=== PATIENT | male | born 1950 | race Caucasian/White ===

== ENCOUNTER 2016-12-20 20:13 | Observation (INO) | payer OTHER ==
--- NOTE | ~2016-12-20 | CO ---
Unit #: [id number] #: [id number] Patient: DEVON MONTGOMERY [id number] [address] [place], [place] [address] [id number] MR#: [id number] NAME: DEVON MONTGOMERY. ROOM: 339 Age: 66 Sex: M Admission Date: 12/21/2016 : 1950 Attending Physician: Anthony Carvalho M.D. Primary Care Physician: Bhanu Orozco D.O. Consultation Date: 12/21/2016 CONSULTATION REPORT BRIEF HISTORY The patient is a 66-year-old gentleman with a bulge in his umbilicus for a couple years, increasing pain over the last 24 hours, so presented to the emergency room and was found to have a partially incarcerated hernia. This was reduced. He has had no nausea or vomiting. No fevers or chills. Normal bowel function. PAST MEDICAL HISTORY Cardiac dysfunction, hypertension. PAST SURGICAL HISTORY He had appendectomy, a Lap-Band surgery, tonsillectomy, multiple extremity operations. HOME MEDICATIONS Unknown. The patient is to bring a list. SOCIAL HISTORY No smoking. Does drink alcohol on a routine basis. FAMILY HISTORY Noncontributory. Negative for GI malignancy. REVIEW OF SYSTEMS No cardiopulmonary complaints at this time. Else, 10 systems reviewed and negative. PHYSICAL EXAMINATION GENERAL: He is awake, alert, appropriate, currently afebrile. VITAL SIGNS: Temperature 97.7. HEENT: Unremarkable. NECK: Supple. No JVD. Trachea midline. LUNGS: Clear to auscultation. Bilateral breath sounds symmetric. CARDIOVASCULAR: Regular rate and rhythm. ABDOMEN: Soft. It is mildly tender in the periumbilical region. There was a 2 cm defect. This appears to be reducible. EXTREMITIES: No clubbing, cyanosis, or edema. DIAGNOSTIC STUDIES LABORATORY RESULTS: Show white count of 17, hemoglobin of 15. Chemistries are normal. ASSESSMENT Partially incarcerated symptomatic umbilical hernia. Unit #: [id number] #: [id number] Patient: DEVON MONTGOMERY PLAN Recommend IV fluid hydration. We will plan for laparoscopic ventral hernia repair. Discussed in detail. Questions answered. Dictated by... Soy Hoang M.D. FAVIO/mckayla TD: 12/21/2016 08:03 JOB #: [id number] CONSULTATION REPORT Page 1 of 1 X Soy Hoang MD CONSULTATION REPORT
--- NOTE | ~2016-12-20 | OR ---
Unit #: [id number] #: [id number] Patient: DEVON MONTGOMERY [id number] [address] [place], [place] [address] [id number] Nino MR#: [id number] NAME: DEVON MONTGOMERY. ROOM: [facility] Date of Procedure: 12/21/2016 Admission Date: 12/21/2016 Surgeon: Soy Hoang M.D. : 1950 Attending Physician: Anthony Carvalho M.D. Primary Care Physician: Bhanu Orozco D.O. OPERATIVE REPORT PREOPERATIVE DIAGNOSIS Incarcerated ventral hernia. POSTOPERATIVE DIAGNOSIS 3 cm incarcerated ventral hernia. PROCEDURE PERFORMED Laparoscopic ventral hernia repair of incarcerated ventral hernia with 8 x 6 Ventralight mesh. ASSISTANT Dakota Chang M.D. ANESTHESIA General. ESTIMATED BLOOD LOSS Minimal. IV FLUIDS 800 crystalloid. COMPLICATIONS None. INDICATIONS FOR PROCEDURE The patient is a 66-year-old gentleman, who presented to the emergency room with partial obstruction and incarcerated hernia. He presents for laparoscopic repair. DESCRIPTION OF PROCEDURE The patient was taken to the operating theater and placed in supine position. General anesthesia was induced. The abdomen was prepped and draped. A 5-mm Optiview trocar was placed in the left upper quadrant. The abdomen was insufflated to 15 mmHg with CO2. Under direct vision, I placed a left lower quadrant 10 mm. The patient was found to have incarcerated ventral hernia, measured approximately 3 cm in diameter. This was reduced with gentle traction. The lap band and lap band tubing appeared to be normal. I placed an 8 x 6 Ventralight mesh into position. This was held in place with single-stranded Vicryl sutures and delivered transcutaneous. I then secured with SorbaFix Tacker with each tack being 1.5 cm from the previous tack. Hemostasis was adequate. I removed the Unit #: [id number] #: [id number] Patient: DEVON MONTGOMERY ports under direct vision with no evidence of abdominal hemorrhage. The wounds were closed with 4-0 Vicryl. The patient tolerated the procedure well and sent to recovery room in good condition. Dictated by... Paulette Rogers/mckayla TD: 12/22/2016 07:48 JOB #: [id number] OPERATIVE REPORT Page 1 of 1 X Soy Hoang MD PROCEDURE OPERATIVE NOTE
--- NOTE | ~2016-12-20 | EKG ---
PATIENT: DEVON MONTGOMERY UNIT #: [id number] Ventricular Rate: 56 BPM Atrial Rate: 56 BPM P-R Interval: 126 ms QRS Duration: 100 ms Q-T Interval: 414 ms QTC Calculation(Bezet): 399 ms P Stuart: 15 degrees Calculated R Stuart: -2 degrees Calculated T Stuart: 17 degrees Diagnosis Line: Sinus bradycardia Diagnosis Line: Otherwise normal ECG Diagnosis Line: When compared with ECG of 28-FEB-2015 09:31, Diagnosis Line: No significant change was found Diagnosis Line: Confirmed by CARLIE NGO MD ([id number]) on 12/21/2016 Diagnosis Line: 5:02:52 PM INTERPRETING MD: JENI BULLOCK
--- NOTE | ~2016-12-20 | CT2 ---
[facility] A Service of [facility] & [facility] RADIOLOGY TEXT RESULTS PATIENT: DEVON MONTGOMERY LOCATION: [facility] 339-01 : [birth year] UNIT #: [id number] AGE: [address]: Anthony Carvalho SEX: M ORDER DR: [id number] [facility] [address]. [place], [place] [address] [id number] MR#: [id number] Acc #: [id number] NAME: DEVON MONTGOMERY. : 1950 SEX: M STUDY DATE/TIME: 12/20/2016 22:09 [facility] ROOM: [facility] STUDY DESCRIPTION: CT Abd and Pelv W Cont Attending Physician: Anthony Carvalho M.D. Ordering Physician: Jennifer Hernandez M.D. Primary Care Physician: Bhanu Orozco D.O. MEDICAL IMAGING REPORT This report is preliminary unless electronic signature is present EXAM CT abdomen and pelvis with IV contrast. HISTORY Low abdomen pain and nausea today. Hernia reduction in the emergency room today. FINDINGS CT abdomen and pelvis was performed with IV contrast. This CT exam was performed with one or more of the following radiation dose reduction techniques: automatic exposure control, adjustment of mA and/or kV according to patient size, and iterative reconstruction. CT ABDOMEN Laparoscopic gastric band is in satisfactory position. Mild dilatation of small bowel loops in the left abdomen measuring up to 4 cm in diameter. The remainder of the small bowel and colonic caliber are normal. There is a short segment of mildly thickened small bowel in the lower abdomen just to the right of midline, near the umbilicus, with adjacent mild mesenteric stranding. This could be secondary to edema or inflammation. There is a small umbilical hernia containing fluid measuring 2.67 x 2.6 cm in AP and transverse dimensions and 4.1 cm in length. The liver, spleen, pancreas, left kidney, and adrenal glands are normal. Stones in the mid right kidney measure up to 1 cm. Small infrarenal abdominal aortic aneurysm measures 3.[address] PELVIS No pelvic free fluid. No bowel dilatation. Urinary bladder is normal. Prostate gland is unremarkable. Right hip prosthesis. IMPRESSION [facility] A Service of [facility] & [facility] RADIOLOGY TEXT RESULTS PATIENT: DEVON MONTGOMERY LOCATION: A 339-01 : [birth year] UNIT #: [id number] AGE: [address]: Anthony Carvalho SEX: M ORDER DR: 1. Mild dilatation of small bowel in the left upper quadrant measuring up to nearly 4 cm in diameter. This could be secondary mild localized ileus. No focal transition point is identified. 2. Small amount of fluid within an umbilical hernia measuring just over 4 cm in maximal dimension. 3. There is a short segment of moderately thick-walled small bowel in the lower abdomen just deep to the umbilicus with adjacent mesenteric stranding. This could be secondary to localized edema or inflammation. History indicates recent hernia reduction and these findings could be secondary to edema or inflammation within recently herniated small bowel. No residual bowel herniation. 4. Small infrarenal abdominal aortic aneurysm measuring 3.3 cm. 5. Right renal nonobstructing stones measuring up to 10 mm. Dictated by... Thomas Ferreira M.D. THIS IS AN ELECTRONICALLY VERIFIED REPORT Thomas Ferreira M.D. at 12/21/2016 4:12 PM CHELSEA/lauro TD: 12/21/2016 10:03 JOB #: [id number] MEDICAL IMAGING REPORT Page 1 of 1 COPY
[~2016-12-20 20:13] MED LIST: ACETAMINOPHEN PO; ALBUTEROL17 GM INH; ANDROGEL2.5 GM TOP; ASMANEX; ASMANEX0.135 G1 INH; ASPIRIN PO; BACLOFEN10 MG PO; BENICAR HCT 40-1 TAB PO; BENICAR PO; CADUET 10 MG-81 EACH PO; CADUET 10 MG/401 TAB PO; CADUET 10 MG/801 TAB PO; DICLOFENAC PO; DULCOLAX5 MG; FLOMAX0.4 M1 PO; FLOMAX0.4 MG PO; HCTZ PO; HYDROCODON-ACE1 EAC7; HYZAAR 50-12.51 TA1 PO; INDERAL LA PO; INDERAL LA120 MG PO; INNOPRAN XL120 MG PO; LIPITOR PO; LIPITOR40 MG PO; LORTAB 7.5-5001 TAB PO; LOSARTAN POTASS50 MG PO; LOSARTAN-HCTZ1 EACH PO; LOVENOX SUBQ; MULTI-VITAMIN1 TAB PO; MULTIPLE VITAMI1 T11 PO; NORVASC PO; OSTEO BI-FLEX1 EAC1 PO; PRILOSEC PO; PROAIR HFA8.5 GM INH; PROTONIX PO; REGLAN PO; SKELAXIN PO; STOOL SOFTENER PO; TESTOSTERONE; TESTOSTERONE INJ; TYLENOL #3 PO; TYLENOL #4 PO; VIT E PO; VITAMIN B650 MG PO; ZOLOFT PO; ZOLOFT100 MG PO; [UNRECOGNIZED DRUG - OTHER] PO
[2016-12-20 21:03] LABS: BASOPHIL% 0.2 % (0-2.5); EOSINOPHIL# 0.2 X10e3 (0-0.7); EOSINOPHIL% 1.2 % (0.0-7.0); HEMOGLOBIN 18.5 gm/dL (13.0-16.0); MEAN CELL VOLUME 88.6 FL (83-96); MEAN CORPUSCULAR HEMOGLOBIN 29.2 PG (28-34); MEAN PLATELET VOLUME 8.2 FL (6.5-11.5); MONOCYTE# 1.2 X10e3 (0-1.0); MONOCYTE% 6.9 % (3.0-12.0); NEUTROPHIL# 14.8 X10e3 (1.5-7.1); NEUTROPHIL% 85.7 % (40-75); PLATELET COUNT 225 X10e3 (140-420); RED BLOOD COUNT 6.31 X10e (3.90-5.60); RED CELL DISTRIBUTION WIDTH 17.2 % (11.0-15.5); WHITE BLOOD COUNT 17.2 X10e3 (4.0-10.5)
[2016-12-20 21:05] LABS: DIFF IND YES
[2016-12-20 21:15] LABS: PLATELET ESTIMATE NORMAL (NORMAL)
[2016-12-20 21:24] LABS: ALBUMIN SERUM 4.6 g/dL (3.5-5.0); BILIRUBIN, DIRECT 0.3 mg/dL (0.0-0.2); BILIRUBIN,INDIRECT 1.4 mg/dL (0.0-0.9); BILIRUBIN,TOTAL 1.7 mg/dL (0.2-2.0); BUN/CREATININE RATIO 21.42; CREATININE SERUM 0.7 mg/dL (0.6-1.4); GLOM FILT RATE Estimated 99.8 mL/min (>60); PROTEIN TOTAL SERUM 7.5 g/dL (6.0-8.3)
[2016-12-20 21:50] LABS: CALCIUM SERUM 9.5 mg/dL (8.4-10.2); POTASSIUM 3.7 mmol/L (3.5-5.1)
[2016-12-21 01:59] LABS: BUN/CREATININE RATIO 23.33; CALCIUM SERUM 8.6 mg/dL (8.4-10.2); CREATININE SERUM 0.6 mg/dL (0.6-1.4); GLOM FILT RATE Estimated 106.3 mL/min (>60); POTASSIUM 3.4 mmol/L (3.5-5.1)
[2016-12-21 02:53] LABS: BASOPHIL% 0.3 % (0-2.5); EOSINOPHIL# 0.1 X10e3 (0-0.7); EOSINOPHIL% 0.6 % (0.0-7.0); HEMATOCRIT 51.6 % (38.0-50.0); HEMOGLOBIN 17.1 gm/dL (13.0-16.0); LYMPHOCYTE% 6.4 % (17.0-45.0); MEAN CORPUSCULAR HEMOGLOBIN 29.4 PG (28-34); MEAN CORPUSCULAR HGB CONC 33.1 g/dL (30-36); MEAN PLATELET VOLUME 8.6 FL (6.5-11.5); MONOCYTE# 0.9 X10e3 (0-1.0); MONOCYTE% 5.9 % (3.0-12.0); NEUTROPHIL# 13.2 X10e3 (1.5-7.1); NEUTROPHIL% 86.8 % (40-75); PLATELET COUNT 192 X10e3 (140-420); WHITE BLOOD COUNT 15.2 X10e3 (4.0-10.5)
[2016-12-21 02:54] LABS: DIFF IND YES
[2016-12-21 03:17] LABS: ANISOCYTOSIS SL
[2016-12-21 04:17] LABS: URINE SOURCE CLEAN CATCH
[2016-12-21 04:24] LABS: URINE APPEARANCE CLEAR; URINE BILIRUBIN NEG (NEG); URINE BLOOD NEG (NEG); URINE COLOR YELLOW; URINE GLUCOSE NEG (NEG); URINE KETONE 2+ (NEG); URINE LEUKOCYTE ESTERASE TRACE (NEG); URINE NITRATE NEG (NEG); URINE PROTEIN NEG (NEG); URINE SPECIFIC GRAVITY 1.067 (1.003-1.035)
[2016-12-21 04:28] LABS: U HYALINE CASTS AUWI 0-2 /[LPF]; URBCS1 AUWI 0-2 /[HPF] (0-2); URINE BACTERIA AUWI NEG (NEGATIVE); URINE SQUAMOUS EPITHELIAL CELL NONE SEEN /[HPF]
[2016-12-21 04:34] LABS: CULTURE INDICATED? NO
[2016-12-21 05:42] LABS: PLATELET ESTIMATE NORMAL (NORMAL)
[2016-12-21 07:49] LABS: HEMATOCRIT 49.8 % (38.0-50.0); HEMOGLOBIN 16.8 gm/dL (13.0-16.0); MEAN CELL VOLUME 88.3 FL (83-96); MEAN CORPUSCULAR HEMOGLOBIN 29.9 PG (28-34); MEAN CORPUSCULAR HGB CONC 33.9 g/dL (30-36); MEAN PLATELET VOLUME 7.6 FL (6.5-11.5); RED BLOOD COUNT 5.64 X10e (3.90-5.60); RED CELL DISTRIBUTION WIDTH 17.1 % (11.0-15.5); WHITE BLOOD COUNT 12.2 X10e3 (4.0-10.5)
[2016-12-21] MEDS ORDERED: PANTOPRAZOLE SO40 MG PO (11:15)
[2016-12-21] MEDS ORDERED: LOSARTAN-HCTZ1 EACH PO (11:15)
[2016-12-21] MEDS ORDERED: ZOLOFT100 MG PO (11:18)
[2016-12-21] MEDS ORDERED: AMLODIPINE-ATO1 EAC7 PO (11:20)
[2016-12-21] MEDS ORDERED: INDERAL LA PO (11:21)
[2016-12-21] MEDS ORDERED: FLOMAX0.4 M1 PO (11:22)
[2016-12-21] MEDS ORDERED: VOLTAREN75 MG PO (11:22)
[2016-12-21] MEDS ORDERED: SYMBICORT INH ×2 (11:23→11:40)
[2016-12-21] MEDS ORDERED: ASPIRIN PO (11:26)
[2016-12-21] MEDS ORDERED: SINGULAIR PO (11:36)
[2016-12-21] MEDS ORDERED: ALBUTEROL MININEB NEB (11:41)
[2016-12-21] MEDS ORDERED: HYDROCODON-ACE1 EAC9 PO (15:12)
== END 2016-12-21 18:00 | disposition home or self-care (01) ==
LOC: CED 20:13 → C3A PCU 12-21 03:10 → CEDOF 12-21 03:10 → CED 12-21 03:20 → C3A PCU 12-21 04:24 → CEDOF 12-21 04:24 → C3A PCU 12-21 18:00
PROVIDERS: Emergency Medicine; Surgery
DX: K43.6 Other and unspecified ventral hernia with obstruction, without gangrene (principal); I10 Essential (primary) hypertension; I25.10 Atherosclerotic heart disease of native coronary artery without angina pectoris; J44.9 Chronic obstructive pulmonary disease, unspecified; M19.90 Unspecified osteoarthritis, unspecified site; G43.909 Migraine, unspecified, not intractable, without status migrainosus; Z88.8 Allergy status to other drugs, medicaments and biological substances; Z79.82 Long term (current) use of aspirin; Z79.51 Long term (current) use of inhaled steroids; Z79.899 Other long term (current) drug therapy; Z90.49 Acquired absence of other specified parts of digestive tract; Z95.5 Presence of coronary angioplasty implant and graft; Z98.84 Bariatric surgery status; Z98.890 Other specified postprocedural states
CPT/HCPCS: 36415; 74177; 80048; 80076; 81003; 82150; 83605; 83690; 85025; 85027; 93005; 96374; 96375; 96376; 99285; C1787; G0378; J0330; J0690; J1170; J1644; J2270; J2405; J2710; J3010; Q9967